=== PATIENT | female | born 1950 | race Caucasian/White ===

== ENCOUNTER 2020-01-07 10:26 | Outpatient (CLI) | payer OTHER, SELFPAY ==
--- NOTE | ~2020-01-07 | MM_ITS ---
EXAMINATION: MM screening brown BI w juan c HISTORY: Screening mammogram TECHNIQUE: Craniocaudal and mediolateral oblique 3-D tomosynthesis images were obtained and synthetic 2-D images were generated. CAD analysis was submitted and interpreted. COMPARISON: No prior mammogram is available for comparison at this institution. BREAST PARENCHYMAL COMPOSITION: There are scattered areas of fibroglandular density. FINDINGS: There is focal asymmetry laterally in the left breast on CC view. There is no evidence of s uspicious mass, calcification, or architectural distortion to suggest malignancy in the right breast. IMPRESSION: 1. Focal left breast asymmetry laterally on CC view. 2. Additional mammographic views and possible breast ultrasound are recommended. BI-RADS Category 0: Incomplete: Needs additional imaging evaluation. Reviewed, dictated and finalized at location A. IMPRESSION: 1. Focal left breast asymmetry laterally on CC view. 2. Additional mammographic views and possible breast ultrasound are recommended . BI-RADS Category 0: Incomplete: Needs additional imaging evaluation.
== END 2020-01-07 10:27 | disposition home or self-care (01) ==
LOC: ANHIMG 10:30
PROVIDERS: PCP Internal Medicine; Visit Provider Internal Medicine
DX: Z12.31 Encounter for screening mammogram for malignant neoplasm of breast (principal); R92.8 Other abnormal and inconclusive findings on diagnostic imaging of breast
CPT/HCPCS: 77063; 77067

== ENCOUNTER 2020-02-18 11:46 | Outpatient (CLI) | payer OTHER, SELFPAY ==
--- NOTE | ~2020-02-18 | MMUS_ITS ---
EXAMINATION: MM diagnostic mammo unilat LT, US breast LT limited HISTORY: Follow-up left breast asymmetry TECHNIQUE: Additional 3-D tomosynthesis images of the left breast were performed and synthetic 2-D im ages were generated. CAD analysis was submitted and interpreted. High resolution left breast ultrasou nd was performed. COMPARISON: Comparison to multiple prior studies sequentially, with oldest reviewed study dated 12/04. BREAST PARENCHYMAL COMPOSITION: Breast composed of scattered areas of fibroglandular density. FINDINGS: MAMMOGRAPHIC FINDINGS: There is a focal irregular shaped mass in the upper outer quadrant of the left breast measuring appro ximately 6 mm, middle third. There are no suspicious calcifications or architectural distortion. ULTRASOUND: Left breast ultrasound: At 2:00, 5 cm from the nipple in the left breast there is a 6 mm irregular shaped hypoechoic mass wit h antiparallel configuration, posterior shadowing and no internal vascularity. This corresponds to th e finding on mammography. IMPRESSION: 1. Solid irregular hypoechoic left breast mass at 2:00, 5 cm from the nipple. 2. Ultrasound-guided left breast biopsy recommended. BI-RADS category 4, suspicious findings. Reviewed, dictated and finalized at location A. IMPRESSION: 1. Solid irregular hypoechoic left breast mass at 2:00, 5 cm from the nipple. 2. Ultrasound-guided left breast biopsy recommended. BI-RADS category 4, suspicious findings.
== END 2020-02-18 11:47 | disposition home or self-care (01) ==
LOC: ANHIMG 11:48
PROVIDERS: PCP Internal Medicine; Visit Provider Internal Medicine
DX: N64.89 Other specified disorders of breast (principal); R92.8 Other abnormal and inconclusive findings on diagnostic imaging of breast
CPT/HCPCS: 76642; 77065

== ENCOUNTER 2023-12-02 13:11 | Outpatient (CLI) | payer MEDICARE, SELFPAY ==
--- NOTE | ~2023-12-02 | XR_ITS ---
XR hip BI wo pelvis Ordering provider: Natasha Ireland, History: . right hip pain, no known injury . Comparison: None. FINDINGS: BONES: No acute fracture or dislocation. HIP JOINT SPACES: Bilateral hip osteoarthritic changes. SACROILIAC JOINT SPACES/LUMBAR SPINE: The sacroiliac joint spaces are normal. Mild degenerative cordon es of the visualized lower lumbar spine. Attempt of lumbarization of S1 is noted. PUBIC SYMPHYSIS: Normal. SOFT TISSUES: Normal. IMPRESSION: No acute osseous abnormality of the bilateral hips and pelvis. Bilateral hip osteoarthritic changes. Reviewed, dictated and finalized at location A.
== END 2023-12-02 13:12 | disposition home or self-care (01) ==
LOC: ANHIMG 13:14
PROVIDERS: PCP Internal Medicine; Visit Provider Internal Medicine
DX: M16.0 Bilateral primary osteoarthritis of hip (principal); M25.551 Pain in right hip
CPT/HCPCS: 73521

== ENCOUNTER 2025-02-18 01:43 | Day surgery (SDC) | payer MEDICARE, SELFPAY ==
[2025-02-05 08:45] VITALS: BMI 26.6
--- OUTSIDE RECORDS SUMMARY | 2025-02-18 01:45 | XMS_ITS | Encounter Summary ---
Author Organization [facility] Healthcare Address [address] [place] [address] Care Team Providers Care Patient Safety Tech Name Role Phone Natasha Ireland MD Primary Care Provider + Natasha Ireland MD Primary Care Provider + Natasha Ireland MD Unavailable [phone] Tacho Balderas MD PhD Unavailable [phone] [facility] Unavailable [phone] Ewa Diallo MD Unavailable [phone] Jaymie Nicholson NP Unavailable [phone] Ewa Diallo MD Unavailable [phone] Encounter Details Date Type Department Care Team (Late st Contact Info) Description 11/20/2019 Documentation [facility] Case Management [id number] [place] [address] Lyly Nice RN Social History Tobacco Use Types Packs/Day Years Used Date Smoking Tobacco: Never Smokeless Tobacco: Never Alcohol Use Standard Drinks/Week Comments Yes 0 (1 standard drink = 0.6 oz pur e alcohol) occasionally PHQ-2 Answer Date Recorded PHQ-2 Total Score (If total score is 3 or more points, staff should administer the PHQ-9) 0 11/14/2019 Comments No Sex and Gender Information Value Date Recorded Sex Assigned at Not on file Legal Sex Female 2:42 PM FILM [employer] Gender Identity Female 11/02/2021 12:42 PM CDT Sexual Orientation Lesbian 11/02/2021 12 :42 PM CDT documented as of this encounter Plan of Treatment Not on file documented as of this encounter Visit Diagnoses Not on filedocumented in this encounter Care Teams Patient Safety Tech Relationship Specialty Start Date End Date Natasha Ireland MD PCP - General Internal Medicine 02/22/18 03/25/20 Natasha Ireland MD PCP - General 03/26/20 Natasha Ireland MD Internal Medicine 03/26/20 01/04/21 Tacho Balderas MD PhD Medical Oncology 03/25/20 11/08/21 Urban Carson MD Surgeon Surgery 03/25/20 Ewa Diallo MD Radiation Oncologist Radiation Oncology 01/04/21 4 Jaymie Nicholson NP Nurse Practitioner Medical Oncology 11/09/21 Ewa Diallo MD [facility] [address] Radiation Oncologist Radiation Oncology 12/22/23 documented as of this encounter
--- OUTSIDE RECORDS SUMMARY | 2025-02-18 01:45 | XMS_ITS | Encounter Summary ---
Author Organization [facility] Health Address [address] [place] [address] Care Team Providers Care Client Finance Analyst Name Role Phone Unavailable Primary Care Provider Unavailabl e Prior Encounters Date Type Department Care Team Description 06/24/2024 2:30 PM PST Office Visit [facility] [address] [place] [address] Mary Beth Durham, [facility] Encounter for dental examination and cleaning without abnormal findings (Primary Dx) 06/24/2024 Travel 06/24/2024 1:15 PM PST Office Visit [facility] [address] [place] [address] Tricia Johnson DDS Encounter for dental examination and cleaning without abnormal findings (Primary Dx) 08/10/2020 Travel 08/10/2020 2:30 PM PST Office Visit [facility] [address], [address] [address] Luz Maria Burns DDS 07/30/2020 Travel 07/30/2020 1:30 PM PST Office Visit [facility] [address], [address] [address] Luz Maria Burns DDS 07/14/2020 Travel 07/14/2020 1:30 PM PST Office Visit [facility] [address], [address] [address] Luz Maria Burns, DDS 07/02/2020 1:00 PM PST Office Visit [facility] [address], [address] [place] [address] BryanchristalCaesar rogers, DDS 06/10/2020 Travel 06/10/2020 10:00 AM PST Office Visit [facility] [address], [address] [place] [address] Tricia Sanchez, [facility] 05/13/2020 Travel 05/13/2020 1:15 PM PST Office Visit [facility] [address] [place] [address] Katy Luz Maria, S 07/08/2019 Converted 13x Documents [facility] [address] [place] [address] <No scans attached> 07/08/2019 Converted CPS Chart Documents [facility] [address] [place] [address] <No scans attached> Last Filed Vital Signs Vital Sign Reading Time Taken Comments Blood Pressure 116/72 06/24/2024 1:24 PM PST Pulse 96 06/24/2024 1:24 PM PST Temperature 36.2 C (97.1 F) 05/13/2020 1:46 PM PST Respiratory Rate - - Oxygen Saturation - - Inhaled Oxygen Concentration - - Weight - - Height - - Body Mass Index - - Plan of Treatment Not on file Procedures Procedure Name Priority Date/Time Associated Diagnosis Comments ORAL FITNESS AMMP-8 MANUALLY RESULTED Routine 06/24/2024 5:14 PM PST 19 SCALING AND DEBRIDEMENT OF A SINGLE IMPLANT IN THE PRESENCE OF MUCOSITIS Routine 06/24/2024 2:30 PM PST Encounter for dental examination and cleaning without abnormal findings LL ANTIBACT IRR/QUAD Routine 06/24/2024 2:30 PM PST Encounter for dental examination and cleaning without abnormal findings PROPHYLAXIS - ADULT Routine 06/24/2024 2 :30 PM PST Encounter for dental examination and cleaning without abnormal findings ORAL HYGIENE INSTRUCTIONS Routine 06/24/2024 2:30 PM PST Encounter for dental examination and cleaning without abnormal findings TOPICAL APPLICATION OF FLUORIDE VARNISH Routine 06/24/2024 2:30 PM PST Encounter for dental examination and cleaning without abnormal findings 8 MIFL RESIN-BASED COMPOSITE - FOUR OR MORE SURFACES (ANTERIOR) Routine 06/24/2024 1:15 PM PST ORALFITNESSCHECK INITIAL SCREEN Routine 06/24/2024 1:15 PM PST INTRAORAL PHOTO Routine 06/24/2024 1:15 PM PST INTRAORAL PHOTO Routine 06/24/2024 1:15 PM PST INTRAORAL PHOTO Routine 06/24/2024 1:15 PM PST INTRAORAL PHOTO Routine 06/24/2024 1:15 PM PST ADDITIONAL X-RAY Routine 06/24/2024 1:15 PM PST ADDITIONAL X-RAY Routine 06/24/2024 1:15 PM PST ADDITIONAL X-RAY Routine 06/24/2024 1:15 PM PST ADDITIONAL X-RAY Routine 06/24/2024 1:15 PM PST ADDITIONAL X-RAY Routine 06/24/2024 1:15 PM PST SINGLE X-RAY Routine 06/24/2024 1:15 PM PST BITEWINGS - FOUR RADIOGRAPHIC IMAGES Routine 06/24/2024 1:15 PM [address] CAPTURE AND INTERPRETATION WITH FIELD OF VIEW OF BOTH JAWS; WITH OR WITHOUT CRANIUM Routine 06/24/2024 1:15 PM PST COMPREHENSIVE ORAL EVALUATION - NEW OR ESTABLISHED PATIENT Routine 06/24/2024 1:15 PM PST Encounter for dental examination and cleaning without abnormal findings 5 B(V) COMPOSITE FILLING Routine 12:00 AM PST 6 MIDL COMPOSITE FILLING Routine 12:00 AM PST 7 MIDF COMPOSITE FILLING Routine 12:00 AM PST 9 MIL COMPOSITE FILLING Routine 06/24/19 12:00 AM PST 8 MIDL COMPOSITE FILLING Routine 12:00 AM PST 21 CEREC CROWN Routine 06/24/2024 12:00 AM PST 21 ROOT CANAL Routine 06/24/2024 12:00 AM PST 13 CEREC CROWN Routine 06/24/2024 12:00 AM PST 14 CEREC CROWN Routine 06/24/2024 12:00 AM PST 12 CEREC CROWN Routine 06/24/2024 12:00 AM PST 29 PFM CROWN Routine 06/24/2024 12:00 AM PST 31 PFM CROWN Routine 06/24/2024 12:00 AM PST 13 ROOT CANAL Routine 06/24/2024 12:00 AM PST 14 ROOT CANAL Routine 06/24/2024 12:00 AM PST 29 ROOT CANAL Routine 06/24/2024 12:00 AM PST 31 ROOT CANAL Routine 06/24/2024 12:00 AM PST 30 CEREC CROWN Routine 06/24/2024 12:00 AM PST 30 DENTAL IMPLANT Routine 06/24/2024 12: 00 AM PST 4 CEREC CROWN Routine 06/24/2024 12:00 AM PST 11 CEREC CROWN Routine 06/24/2024 12:00 AM PST 4 DENTAL IMPLANT Routine 06/24/2024 12:0 0 AM PST 12 DENTAL IMPLANT Routine 06/24/2024 12: 00 AM PST 15 PFM CROWN Routine 06/24/2024 12:00 AM PST 20 CEMENT CROWN Routine 08/10/2020 2:30 PM PST 20 IMPLANT ZIRCONIA CROWN Routine 07/14/2020 1:30 PM PST 20 CUSTOM FABRICATED ABUTMENT INCLUDES PLACEMENT Routine 07/14/2020 1:30 PM PST 20 SECOND STAGE IMPLANT SURGERY Routine 07/02/2020 1:00 PM PST PERIO MAINTENANCE Routine 06/10/2020 10: 00 AM PST INTRAORAL PHOTO Routine 05/13/2020 1:15 PM PST INTRAORAL PHOTO Routine 05/13/2020 1:15 PM PST INTRAORAL PHOTO Routine 05/13/2020 1:15 PM PST INTRAORAL PHOTO Routine 05/13/2020 1:15 PM PST BITEWINGS - FOUR RADIOGRAPHIC IMAGES Routine 05/13/2020 1:15 PM PST ADDITIONAL X-RAY Routine 05/13/2020 1:15 PM PST ADDITIONAL X-RAY Routine 05/13/2020 1:15 PM PST ADDITIONAL X-RAY Routine 05/13/2020 1:15 PM PST ADDITIONAL X-RAY Routine 05/13/2020 1:15 PM PST ADDITIONAL X-RAY Routine 05/13/2020 1:15 PM PST SINGLE X-RAY Routine 05/13/2020 1:15 PM PST PERIODIC ORAL EVALUATION - ESTABLISHED PATIENT Routine 05/13/2020 1:15 PM PST 19 RECEMENT CROWN Routine 07/23/2019 12: 00 AM PST 20 IMPLANT Routine 05/30/2019 12:00 AM PST MISSED APPOINTMENT Routine 05/23/2019 12 :00 AM PST TREATMENT OF COMPLICATIONS (POST-SURGICAL) - UNUSUAL CIRCUMSTANCES, BY REPORT Routine 07/12/2018 12:00 AM PST PLAN VISIT FEE Routine 07/12/2018 12:00 AM PST PANORAMIC RADIOGRAPHIC IMAGE Routine 06/26/2018 12:00 AM PST ADDITIONAL X-RAY Routine 06/26/2018 12:0 0 AM PST SINGLE X-RAY Routine 06/26/2018 12:00 AM PST INTRAORAL PHOTO Routine 06/26/2018 12:00 AM PST 19 IMPLANT CROWN UNIT Routine 06/25/2018 12:00 AM PST 19 IMPLANT Routine 06/25/2018 12:00 AM PST 20 GUIDED TISSUE REGENERATION, NATURAL TEETH - RESORBABLE BARRIER, PER SITE Routine 06/25/2018 12:00 AM PST 20 BONE REPLACEMENT GRAFT FOR RIDGE PRESERVATION - PER SITE Routine 06/25/2018 12:00 AM PST 20 REMOVAL OF RESIDUAL TOOTH ROOTS (CUTTING PROCEDURE) Routine 06/25/2018 12:00 AM PST DENTAL PLAN ENROLL 2 Routine 06/25/2018 12:00 AM PST 20 LIMITED ORAL EVALUATION - PROBLEM FOCUSED Routine 06/25/2018 12:00 AM PST Results * (ABNORMAL) Oral Fitness AMMP-8 manually resulted (06/24/2024 5:14 PM [facility]) Active matrix metalloproteina se-8 level 31(A) 0 - 10 ng/mL Saliva Salivary gland structure / Unknown 06/24/2024 5:14 PM [facility] Tricia Johnson DDS PDS [facility] al Result Visit Diagnoses Diagnosis Start Date Encounter for dental examination and cleaning without abnormal findings 06/24/2024 Encounter for dental examination and cleaning without abnormal findings 06/24/2024 Insurance [facility] PPO
--- OUTSIDE RECORDS SUMMARY | 2025-02-18 01:45 | XMS_ITS | Clinical Summary ---
Author Organization [facility] Address [address] [place] [address] Care Team Providers Care Laboratory Aide Name Role Phone Natasha Ireland MD Primary Care Provider + NimcoUrban MD Unavailable [phone] FerminjaJaymie blanc NP Unavailable [phone] Ewa Diallo MD Unavailable [phone] Allergies Active Allergy Reactions Criticality Noted Date Comments Codeine Stomach upset,Other (See comments) Low 09/01/2017 Other Reaction(s): GI Upset Nausea Nausea Hydrocodone Nausea only Low 04/08/2020 Other Reaction(s): Vomiting Oxycodone Nausea only Low 04/08/2020 Other Reaction(s): Vomiting Medications lisinopril-hydroCH LOROthiazide (PRINZIDE,ZESTORET IC) 10-12.5 mg per tabletIndications: hypertension 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 9 Active atorvastatin (LIPITOR) 20 mg tabletIndications: hyperlipidemia Take 1 tablet (20 mg total) by mouth nightly 9 Active calcium carbonate-vitamin D3 (Calcium 600 + D,3,) 1,500 mg (600 mg elemental)-200 unit capsule 2 Every Morning Oral 7 Active allopurinoL (ZYLOPRIM) 100 mg tablet Take 2 tablets (200 mg total) by mouth daily 4 Active letrozole (FEMARA) 2.5 mg tabletIndications: Early Breast Cancer HR Positive and Postmenopausal Take 1 tablet (2.5 mg total) by mouth daily 90 tablet 3 4 03/26/20 25 Active multivitamin (Multiple Vitamins) tablet Take 1 tablet by mouth 5 Active triamcinolone (KENALOG) 0.1 % cream apply by topical route 2 times every day a thin layer to the affected areas on arms and chest 5 Active Hospital, Clinic, or Other Facility Administered Medication Ordered Dose Route Frequency Start Date End Date Status lidocaine (XYLOCAINE) 10 mg/mL (1 %) injection 1 mLIndications:Adminis tration of Local Anesthesia 1 mL One-Time Injection 02/12/2025 5 Ended methylPREDNISolone acetate (DEPO-medrol) injection 40 mgIndications:Arthrit is of carpometacarpal (CMC) joint of right thumb 40 mg intra-artic One-Time Injection 02/12/2025 5 Ended Active Problems Problem Noted Date Diagnosed Date Disorder of bone 02/12/2025 Osteopenia of neck of left femur 04/03/2023 Overview (04/03/2023): Date Lumbar Spine T-score Left hip T-score Femoral neck T-score 04-22-2020 0.4 -0.1 -1.0 01/18/2023 0.4 0.2 -1.2 Personal history of radiation therapy 01/04/2021 detention (current) use of aromatase inhibitors 05/19/2020 Malignant neoplasm of upper- outer quadrant of left breast in female, estrogen receptor positive ([facility]/HCC) 03/26/2020 HTN (hypertension) 11/13/2019 Vitamin D deficiency 06/19/2019 Hyperlipidemia 04/25/2019 Abnormal glucose level 10/17/2018 Gout 10/16/2017 Pure hyperglyceridemia 10/25/2004 Resolved Problems Problem Noted Date Diagnosed Date Resolved Date Primary osteoarthritis of right knee 11/06/2019 11/09/2021 Overview (11/06/2019): Added automatically from request for surgery [id number] Aftercare following left kne e joint replacement surgery 06/01/2017 11/09/2021 Encounters Date Type Department Care Team Description 02/12/2025 11:00 AM CDT Office Visit [facility] Medicine Orthopaedic Surgery [address] 6[address] [place] [address] [place] [address] Jona Cool MD Arthritis of carpometacarpal (CMC) joint of right thumb (Primary Dx) 01/07/2025 2:00 PM CDT Office Visit [facility] Medical Office Building 2 Radiation Oncology [address] [place] [address] Angelica Yeager, [place] Malignant neoplasm of upper-outer quadrant of left breast in female, estrogen receptor positive (CMS/HCC) (HCC) (Primary Dx); Personal history of radiation therapy from Last 3 Months Immunizations Immunization Administration Dates Next Due Influenza, Quad, Adjuvantated, Intramuscular 11/2021,04/16/2021 Influenza, Quadrivalent, Hig h Dose, Preservative Free, Intrr 04/17/2020 Influenza, Quadrivalent, Rec ombinant, Egg Free, Preservative Free, Intramuscular 04/25/2019,04/17/2018 Influenza, Quadrivalent, Spl it, Preservative Free, Intramuscular 04/30/2016 Moderna SARS-CoV-2 Monovalent Vaccination (12+ Y RS) 08/26/2020,07/27/2020 Pneumococcal Conjugate PCV 13 10/16/2017 Pneumococcal Polysaccharide PPV23 10/18/2018 Tdap 09/17/2017 ZOSTER LIVE 06/22/2021 ZOSTER Recombinant 11/10/2021 Surgical History Surgery Date Site/Laterality Comments TOTAL KNEE ARTHROPLASTY 06/19/2016 - 06/18/2017 Left CARPAL TUNNEL RELEASE Bilateral TONSILLECTOMY CATARACT EXTRACTION, BILATERAL COLONOSCOPY 06/19/2015 - 06/18/2016 US GUIDED BIOPSY LYMPH NODE SUPERFICIAL LEFT 04/01/2020 N/A FLUORO GUIDED INJECTION HIP RIGHT 03/08/2024 Right BREAST SURGERY Lumpectomy 04/07 JOINT REPLACEMENT Left knee 2016; Righ t knee 2018 CATARACT EXTRACTION Both eyes 2019 KNEE ARTHROSCOPY W/ LATERAL RELEASE Left knee 2016; right knee 2019 Medical History Medical History Date Comments HTN (hypertension) Dyslipidemia Osteoarthritis Hypercholesteremia Cancer (HCC) 2019 breast Family History Medical History Relation Name Comments Alcohol abuse Brother 1 Yusuf Barrow Family history of alcoholism - (Added by TW Conv) Cancer Brother 1 Yusuf Barrow Lung cancer Brother 1 Yusuf Barrow smoker No Known Problems Brother 2 No Known Problems Brother 3 Alcohol abuse Father Skyler Barrow Family histor y of alcoholism - (Added by TW Conv) Heart disease Father Skyler Barrow Family histor y of cardiac disorder - (Added by TW Conv) No Known Problems Maternal Grandfather No Known Problems Maternal Grandmother COPD Mother Alicia Barrow Kidney disease Mother Alicia Barrow Family his tory of kidney disease - (Added by TW Conv) Heart disease Paternal Grandfather Breast cancer Paternal Grandmother No Known Problems Sister 1 No Known Problems Sister 2 Relation Name Status Comments Brother 1 Yusuf Barorw Brother 2 Alive Brother 3 Alive Father Skyler Barrow (Age 56y/o) [place] Maternal Grandfather Maternal Grandmother Mother Alicia Barrow Paternal Grandfather Paternal Grandmother Sister 1 Alive Sister 2 Alive Social History Tobacco Use Types Packs/Day Years Used Date Smoking Tobacco: Never Smokeless Tobacco: Never Tobacco Cessation:Counseling Given: Not Answered Alcohol Use Standard Drinks/Week Comments Yes 0 (1 standard drink = 0.6 oz pur e alcohol) occasionally AUDIT-C Answer Date Recorded Q1: How often do you have a drink containing alc ohol? 2-4 times a month 01/03/2024 Q2: How many drinks containi ng alcohol do you have on a typical day when you are drinking? 1 or 2 01/03/2024 Q3: How often do you have si x or more drinks on one occasion? 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6 cm (5' 4) 03/06/2024 10:37 AM CDT Body Mass Index 26.61 03/06/2024 10:37 AM CDT Plan of Treatment Health Maintenance Due Date Last Done Comments Hepatitis C Screening 1950 Hepatitis B Screening 1966 Well Visit 65+ 2013 Depression Screening 11/05/2020 11/06/2019, 11/06/19 Fall Risk Assessment 11/13/2020 11/14/2019 Zoster Vaccine (2 of 2) 01/05/2022 11/10/2021, 06/22 Covid-19 Vaccine (8 - Modern a risk season) 2025 03/09/2024, 11/09/2022, 06/15/2022, Additional history exists Influenza Vaccine (#1) 2025 , 05/26/2023, 03/24/2022, Additional history exists Osteoporosis Screening-Bone Density Scan 02/07/2027 02/07/2025, 01/18/2023, 04/22/2020 DTaP/Tdap/Td Vaccine (3 - Td or Tdap) 09/18/2027 09/17/2017, 2008, 04/02/1999 Pneumococcal vaccine 65+ Completed 024, 10/18/2018, 10/16/2017 Breast Cancer Screening-Mammogram Discontinued 02/07/2025, 02/07/2025, 01/22/2024, Additional history exists Medical Devices Implanted Type Area Air Carrier Maintenance Inspector Device Identifier Shelf Expiration Date Model / Serial / Lot [employer] [id number] Attune Cementless Rotate Platform Knee 5 Baseplate Tibial - [id number] Implanted:Qty: 1 on 11/14/2019 by Jona Marques MD at [facility] Right: Knee [employer] [id number] 12/16/2028 [id number] / / [id number] [employer] [id number] Attune 5mm Cruciate Retaining Rotate Platform Knee 4 Insert - [id number] Implanted:Qty: 1 on 11/14/2019 by Jona Marques MD at [facility] Right: Knee [employer] [id number] 09/16/2024 [id number] / / [id number] [employer] [id number] Attune Cruciate Retain Cementless Knee Right 4 Narrow Component - [id number] Implanted:Qty: 1 on 11/14/2019 by Jona Marques MD at [facility] Right: Knee [employer] [id number] 03/18/2029 [id number] / / [id number] Procedures Procedure Name Priority Date/Time Associated Diagnosis Comments [place] ARTHROCENTESIS ASPIR&/INJ SMALL JT/BURSA W/O US Routine 02/12/2025 11:00 AM CDT Arthritis of carpometacarpal (CMC) joint of right thumb SCREENING MAMMOGRAM BILATERAL W NELDA Schedule Routine, Read Routine (OP Routine) 12/04/2018 11:27 AM CDT Encounter for screening mammogram for malignant neoplasm of breast from Last 3 Months or Most Recently Relevant to Health Maintenance Results * [place] ARTHROCENTESIS ASPIR&/INJ SMALL JT/BURSA W/O US (02/12/2025 11:00 AM CDT) Narrative Jona Cool MD - 02/12/2025 11:00 AM CDT Jona Cool MD 02/12/2025 6:11 PM Small Joint Injection: R thumb CMC Performed by: Jona oCol MD Authorized by: Jona Cool MD Supporting Documentation: Indications: Pain Procedure Details: Location: Thumb Site: R thumb CMC Ultrasound guidance: No Medications: 40 mg methylPREDNISolone acetate 40 mg/mL; 1 mL lidocaine 10 mg/mL (1 %) Today we recommended a steroid injection. Risks of the injection were explained to include infection, flare reaction, skin depigmentation, dimpling, temporary elevation in blood sugars in patients with diabetes, and possible tendon rupture damage to cartilage with repeated injections. Injection performed with an alcohol and Betadine preparation. us Jona Cool MD IN CLINIC/BEDSIDE ORDERAB LES Final Result from Last 3 Months Insurance [facility] MEDICARE ADVANTAGE Advance Directives For more information, please contact: [phone] * Full Code (Latest Code Status on File) Date Activated Date Inactivated Comments 11/14/2019 10:35 AM 11/14/2019 11:32 PM Care Teams Laboratory Aide Relationship Specialty Start Date End Date Natasha Ireland MD PCP - General 03/26/20 Urban Carson MD Surgeon Surgery 03/25/20 Jaymie Nicholson NP Nurse Practitioner Medical Oncology 11/09/21 Ewa Diallo MD [address] [place] [id number] Radiation Oncologist Radiation Oncology 12/22/23
--- OUTSIDE RECORDS SUMMARY | 2025-02-18 01:45 | XMS_ITS | Encounter Summary ---
Author Organization [facility] [place] [facility] Address [address] [place] [address] Phone Care Team Providers Care Head Cook Name Role Phone Natasha Ireland MD Primary Care Provider + Natasha Ireland MD Primary Care Provider + Natasha Ireland MD Unavailable [phone] Tacho Balderas MD PhD Unavailable [phone] NimcoUrban MD Unavailable [phone] Ewa Diallo MD Unavailable [phone] Jaymie Nicholson NP Unavailable [phone] Ewa Diallo MD Unavailable [phone] Encounter Details Date Type Department Care Team (Late st Contact Info) Description 03/25/2020 Telephone [facility] Oncology [address] 7[address] [place] [address] [place] [address] Carli Mohamud Social History Tobacco Use Types Packs/Day Years [...] on file 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
--- OUTSIDE RECORDS SUMMARY | 2025-02-18 01:45 | XMS_ITS | Patient Health Record ---
Author Organization [facility] Address [address] [place] [address] Support Name Relationship Address Phone Barrow Josefa Guarantor Unknown Unavailable Reason For Referral No Information Medications Medication SIG (Take, Route, Frequency, Duration) Notes Start Date End Date Status Lisinopril-hydroCHLOR Othiazide 10-12.5 MG TAKE ONE TABLET BY MOUTH EVERY MORNING FOR HYPERTENSION. Oral 07/11/2013 Active ATORVASTATIN 20 MG TAB CARLOS TAKE ONE TABLET BY MOUTH AT BEDTIME *Reorder from Digital Guardian for eRx and Interaction Alerts* 08/28/2013 Active Calcium 600 + D 600-5 MG-MCG 2 Every Morning Oral 09/20/2006 Active Allopurinol 300 MG TAKE ONE TABLET BY MOUTH ONE TIME DAILY Oral 07/11/2013 Active Immunizations Vaccine Route Administration Date Status Comme nts Infuenza, trivalent, recombinant, preservative free Unknown 05/17/2012 Administered [facility] Infuenza, trivalent, recombinant, preservative free Unknown 04/30/2013 Administered [facility] Td (adult) Unknown 04/02/1999 Administered migrated Leg Patid= [id number] Date=04/02/1999 Vac= TD Tdap Unknown 2008 Administered migrated Leg Patid= [id number] Date=2008 Vac= Tdap Problems Problem Type SNOMED Code ICD Code Onset Dates Problem Status W/U Status Risk Notes Problem Vitamin D deficiency (77713921) Vitamin D deficiency, unspecified (E55.9) 2009 Active confirmed 08/23/2012 - 25 add 1000 units/day Problem Pure hyperglyceridemia (562273198) Pure hyperglyceridemi a (E78.1) 2004 Active confirmed Problem Gout (25540687) Gout, unspecified (M10.9) Active confirmed on allopurinol 300mg Last attack 12/2011 Uric acid 5.0, 4.4 Problem Disorder of bone (47567166) Other specified disorders of bone density and structure, unspecified site (M85.80) Active confirmed 08/24/2012 - Mild Problem Menopause (788864925) Menopausal and female climacteric states (N95.1) 2004 Active confirmed Problem Electrocardiogram abnormal (026549274) Abnormal electrocardiogra m [ECG] [EKG] (R94.31) 2006 Active confirmed Old IMI Problem History of polyp of colon (situation) (568306248) Personal history of colonic polyps (Z86.010) 2004 Active confirmed Hyperplastic polyp, Brent Problem Essential hypertension (69711923) Essential (primary) hypertension (I10) 2004 Active confirmed Problem Pure hypercholesterolemi a (030954660) Pure hypercholesterol emia, unspecified (E78.00) 2004 Active confirmed 08/23/2012 - 187/50/159 start 20 08/23/2012 - Plan Of Treatment No Information Insurance Providers Payer Name Payer Address Payer Phone Subscriber Number Group Number Insured Name Patient Relationship to Insured Coverage Start Date Coverage End Date [place] [employer] Program [address] [place] [address] [id number] Josefa Barrow Self - patient is the insured 3 [employer] - Open Access [address] [place], [place] [id number] Josefa Barrow Self - patient is the insured 2 Xxx [address] [place] [address] [id number] BP Josefa Barrow Self - patient is the insured 2 Medical (General) History Surgical History Surgery Date(Month/Year) CTS: right, Date of Procedure: 08-20-03 Carpal tunnel release: left, Date of Pro cedure: 2003; 2012-08-20
--- OUTSIDE RECORDS SUMMARY | 2025-02-18 01:45 | XMS_ITS | Clinical Summary ---
Author Organization [facility] Address Formerly [facility], later [facility] [place] [address] Care Team Providers Care Director Digital Catalogue Name Role Phone Natasha Ireland MD Primary Care Provider [phone] Tacho Balderas MD Unavailable [phone] Allergies Active Allergy Reactions Criticality Noted Date Comments Codeine GI Upset Low 09/01/2017 Nausea Hydrocodone Vomiting 04/08/2020 Oxycodone Vomiting 04/08/2020 Medications allopurinol 300 MG tablet Take 300 mg by mouth daily. Active lisinopril-hydr ochlorothiazide 10-12.5 MG tablet Take 1 tablet by mouth daily. Active atorvastatin 20 MG tablet Take 20 mg by mouth nightly at bedtime. Active meloxicam 15 MG tablet Take 15 mg by mouth daily. 0 Active diclofenac sodium 1 % gel Apply 2 g topically 3 (three) times daily. 0 Active Active Problems No known active problems Encounters Date Type Department Care Team Description 02/07/2025 11:44 AM CDT - 02/07/2025 11:59 PM CDT Hospital Encounter [facility] [address] [address] Fco Carson MD Discharge Disposition: Home or Self Care (Routine Discharge) 02/07/2025 Travel from Last 3 Months Immunizations Immunization Administration Dates Next Due MODERNA COVID-19 (12+) MRNA, LNP-S, PF, 100 MCG/ 0.5 ML DOSE 01/19/2022,03/02/2021,09/01/2020,2020 Family History Medical History Relation Comments Heart Disease Father Breast Cancer Paternal Grandmother Relation Status Comments Father Paternal Grandmother Social History Tobacco Use Types Packs/Day Years Used Date Smoking Tobacco: Never Smokeless Tobacco: Never Alcohol Use Standard Drinks/Week Comments Yes 0 (1 standard drink = 0.6 oz pur e alcohol) once a month Comments No Sex and Gender Information Value Date Recorded Sex Assigned at Not on file Legal Sex Female 8:43 AM CDT Gender Identity Female 01/21/2022 6:11 AM CDT Sexual Orientation Lesbian 01/21/2022 6: 11 AM CDT Last Filed Vital Signs Vital Sign Reading Time Taken Comments Blood Pressure 114/73 04/08/2020 12:45 PM CDT Pulse 105 04/08/2020 12:45 PM CDT Temperature 36.5 C (97.7 F) 04/08/2020 12:45 PM CDT Respiratory Rate 18 04/08/2020 12:4 5 PM CDT Oxygen Saturation 95% 04/08/2020 12: 45 PM CDT Inhaled Oxygen Concentration - - Weight 76.5 kg (168 lb 10.4 oz) 04/08/2020 6:42 AM CDT Height 162.6 cm (5' 4) 04/08/2020 6:42 AM CDT Body Mass Index 28.95 04/08/2020 6:42 AM CDT Plan of Treatment Health Maintenance Due Date Last Done Comments Hepatitis C 1968 Annual Medicare Wellness Visit 2013 Zoster Vaccines (3 of 3) 01/05/2022 11/10/2021, 09/2021 RSV Immunization or 60+ Years (1 - 1-dose 75+ series) 08/20/2023 COVID-19 Vaccine ( season) 2024 01/19/2022, 03/02/2021, 09/01/2020, Additional history exists DTaP, Tdap and Td Vaccines (4 - Td or Tdap) 09/29/2027 09/28/2017, 09/17/2017, 2008, Additional history exists Pneumococcal Vaccine: 50+ Years Completed 10/18/2018, 10/16/2017 Dexa Scan (General) Completed 02/07/2025, 01/18/2023, 04/22/2020 Meningococcal B Vaccine Aged Out No l onger eligible based on patient's age to complete this topic Meningococcal Vaccine Aged Out No en amelia eligible based on patient's age to complete this topic RSV Immunizations Under 20 Months Aged Out No longer eligible based on patient's age to complete this topic Medical Devices Implanted Type Area Back Up Machine Operator Device Identifier Shelf Expiration Date Model / Serial / Lot Iol [employer]ision Zcboo - [id number] Implanted:Qty: 1 on 12/10/2018 by Luis Eduardo Chau MD at [facility] Lens Right: Eye [employer] 05/31/2021 [id number] / [id number] / Iol [employer]ision Zcboo - [id number] Implanted:Qty: 1 on 01/07/2019 by Luis Eduardo Chau MD at [facility] Lens Left: Eye [employer] 02/16/2022 [id number] / / Procedures Procedure Name Priority Date/Time Associated Diagnosis Comments BONE DENSITY/DEXA Routine 02/07/2025 12: 19 PM CDT Malignant neoplasm of upper-outer quadrant of left breast in female, estrogen receptor positive ([facility]/HCC [facility]/HCC) 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 WHO Classification: Osteopenia. 2. Significant interval decrease in bone mineral density RECOMMENDATIONS: All patients should ensure an adequate intake of dietary calcium and vitamin D. The NOF recommend adults under the age of 50 need 1000 mg of calcium and 400-800 IU of vitamin D daily. Effective therapy for the prevention and treatment of osteoporosis include bisphosphonates. FOLLOW-UP: People with diagnosed cases of osteoporosis or at high risk for fracture should have regular bone mineral density test. For patients eligible for Medicare, routine testing is allowed once every 2 years. Testing frequency can be increased to one year for patients who have rapidly progressing disease, those who are receiving or discontinuing medical therapy to restore bone mass, or have additional risk factors. Ordered By: JAYMIE BETTS Interpreted By: Jose Dasilva, 02/07/2025 12:28 PM Narrative 02/07/2025 12:[address] 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 FINDINGS: The BMD measured at the AP spine L1-L4 is 1.088 g/cm? with a T-score of 0.4 (previously 1.088 g/cm? with a T-score of 0.4). The BMD measured at the left femoral neck is 0.686 g/cm? with a T-score of -1.5 (previously 0.721 g/cm? with a T-score of -1.2). The BMD measured at the left hip is 0.908 g/cm? with a T-score of -0.3 (previously 0.964 g/cm? with a T-score of 0.2). The BMD measured at the right femoral neck is 0.687 g/cm? with a T-score of -1.5 (previously 0.725 g/cm? with a T-score of -1.1). The BMD measured at the right hip is 0.941 g/cm? with a T-score of 0.0 (previously 0.976 g/cm? with a T-score of 0.3). FRAX 10-year fracture risk: Major Osteoporotic Fracture: 12% Hip Fracture: 2.4% Procedure Note Jose Dasilva MD - 02/07/2025 [facility] [place] [address] EXAMINATION: BONE DENSITY/DEXA INDICATIONS: Malignant neoplasm of upper-outer quadrant of left femalebreast (CMS/HCC HHS/HCC), Estrogen receptor positive status (ER+), Half-Way (current) use of aromatase inhibitors, Other specified disorders ofbone density and structure, left thigh COMPARISON: 01/18/2023 TECHNIQUE: DEXA bone mineral density evaluation was performed in the APprojection over the lumbar spine and both hips utilizing standard imagingtechniques. FINDINGS: The BMD measured at the AP spine L1-L4 is 1.088 g/cm? with a T-score of0.4 (previously 1.088 g/cm? with a T-score of 0.4). The BMD measured at the left femoral neck is 0.686 g/cm? with a T-score of-1.5 (previously 0.721 g/cm? with a T-score of -1.2). The BMD measured at the left hip is 0.908 g/cm? with a T-score of - 0.3(previously 0.964 g/cm? with a T-score of 0.2). The BMD measured at the right femoral neck is 0.687 g/cm? with a T-scoreof -1.5 (previously 0.725 g/cm? with a T-score of -1.1). The BMD measured at the right hip is 0.941 g/cm? with a T-score of 0.0(previously 0.976 g/cm? with a T-score of 0.3). FRAX 10-year fracture risk: Major Osteoporotic Fracture: 12% Hip Fracture: 2.4% IMPRESSION: 1. WHO Classification: Osteopenia. 2. Significant interval decrease in bone mineral density RECOMMENDATIONS: All patients should ensure an adequate intake of dietary calcium andvitamin D. The NOF recommend adults under the age of 50 need 1000 mg ofcalcium and 400-800 IU of vitamin D daily. Effective therapy for theprevention and treatment of osteoporosis include bisphosphonates. FOLLOW-UP: People with diagnosed cases of osteoporosis or at high risk for fractureshould have regular bone mineral density test. For patients eligible forMedicare, routine testing is allowed once every 2 years. Testing frequencycan be increased to one year for patients who have rapidly progressingdisease, those who are receiving or discontinuing medical therapy torestore bone mass, or have additional risk factors. Ordered By: JAYMIE BETTS Interpreted By: Jose Dasilva, 02/07/2025 12:28 PM us Jaymie Betts WOOL BRUSHER DEXA Final Resul t * MG SCREENING W NELDA CHANDANA DIGI (02/07/2025 12:18 PM CDT) Anatomical Region Laterality Modality Breast Bilateral Mammography 02/07/2025 12:3 9 PM CDT Impressions 02/07/2025 12:41 PM CDT IMPRESSION: No significant interval change. No mammographic evidence of malignancy. RECOMMENDATION: Routine ScreeningBilateral OVERALL IMAGING ASSESSMENT: ACR BI-RADS 2 - BENIGN FINDING(S). Ordered By: FCO CARSON Interpreted By: Jose Dasilva, 02/07/2025 12:39 PM Narrative 02/07/2025 12:[address] [facility] [address] [place] [address] EXAMINATION: MG SCREENING W NELDA CHANDANA DIGI INDICATIONS: Screening TECHNIQUE: Digital full field CC and MLO screening mammography bilaterally to include 3-D Tomosynthesis technique. This study was read with the assistance of a computer-aided detection system. HISTORY: No reported breast complaint. Prior excisional breast biopsies. Family history of breast cancer. No documented personal or first degree family history of breast cancer. COMPARISON: Multiple prior examinations available for comparison dating back to 10/21/2016, the most recent of 01/22/2024, 02/05/2023, and 01/14/2022. TISSUE DENSITY: There are scattered areas of fibroglandular density. FINDINGS: Stable subtle post biopsy architectural distortion at the outer upper middle to posterior depth left breast. Few scattered typically benign round calcifications. No suspicious microcalcification or mass. No developing asymmetry or architectural distortion. No axillary adenopathy. Fco Carson MD MAMMO Final Result from Last 3 Months Insurance [facility] Care Teams Director Digital Catalogue Relationship Specialty Start Date End Date Natasha Ireland MD PCP - General INTERNAL MEDICINE 12/03/18 Tacho Balderas MD [address] [place] [id number] ONCOLOGY 04/02/20
--- OUTSIDE RECORDS SUMMARY | 2025-02-18 01:45 | XMS_ITS | Encounter Summary ---
Author Organization [facility] Address [address] [place] [address] Care Team Providers Care Community Relations Manager Name Role Phone Natasha Ireland MD Primary Care Provider Tacho Balderas MD Unavailable [phone] Encounter Details Date Type Department Care Team (Late st Contact Info) Description 04/02/2020 Prep for Procedure [facility] Testing [address] [place], [place] [id number] Urban Carson MD [address] [facility] [address] [place] [id number] Social History Tobacco Use Types Packs/Day Years [...] Orientation Lesbian 01/21/2022 6: 11 AM CDT COVID-19 Exposure Response Date Recorded In the last month, have you been in contact with someone who was confirmed or suspected to have Coronavirus / COVID-19? No / Unsure 04/04/2020 9:17 AM CDT documented as of this encounter Plan of Treatment Not on file documented as of this encounter Results * PRE-SURGICAL/PRE-PROCEDURE CORONAVIRUS (COVID 19) (04/05/2020 9:53 AM CDT) CORONAVIRUS SARS COV 2 PCR (RESP) NOT DETECTED NOT DETECTED 04/06/2020 4:36 PM CDT [facility] Comment: A Not Detected (negative) test result for this test means that SARS- CoV-2 RNA was not present in the specimen above the limit of detection. A negative result does not rule out the possibility of COVID-19 and should not be used as the sole basis for treatment or patient management decisions. If COVID-19 is still suspected, based on exposure history together with other clinical findings, re-testing should be considered in consultation with public health authorities. Laboratory test results should always be considered in the context of clinical observations and epidemiological data in making a final diagnosis and patient management decisions. Please review the Fact Sheets and FDA authorized labeling available for health care providers and patients using the following websites: [email or web address]/fact- sheet.html [email or web address]/home/[email or web address]/Patients/ [facility]/fact-sheet.html This test has been authorized by the FDA under an Emergency Use Authorization (EUA) for use by authorized laboratories. Due to the current public health emergency, [facility] is receiving a high volume of samples from a wide variety of swabs and media for COVID-19 testing. In order to serve patients during this public health crisis, samples from appropriate clinical sources are being tested. Negative test results derived from specimens received in non-commercially manufactured viral collection and transport media, or in media and sample collection kits not yet authorized by FDA for COVID-19 testing should be cautiously evaluated and the patient potentially subjected to extra precautions such as additional clinical monitoring, including collection of an additional specimen. Methodology: Nucleic Acid Amplification Test (NAAT) includes RT-PCR or TMA Additional information about COVID-19 can be found at the [facility] website: [email or web address]. Test performed at [facility] [place] [address] [place] [address] Director: RANDY CALVILLO DO,MPH FIRST TEST NO 04/05/2020 1:44 PM CDT [facility] EMPLOYED IN HEALTHCARE NO 04/05/2020 1:44 PM CDT [facility] SYMPTOMATIC DEFINED BY CDC NO 04/05/2020 1:44 PM CDT [facility] DATE OF SYMPTOM ONSET UNKNOWN 04/05/2020 1:46 PM CDT [facility] HOSPITALIZATION STATUS NO 04/05/2020 1:44 PM CDT [facility] PATIENT IN ICU NO 04/05/2020 1:44 PM CDT [facility] RESIDENT OF [facility] NO 04/05/2020 1:44 PM CDT [facility] UNKNOWN 04/05/2020 1:46 PM CDT [facility] PATIENT'S RACE WHITE OR 04/05/2020 1:44 PM CDT [facility] ETHNICITY NONHISPANIC 04/05/2020 1:44 PM CDT [facility] SOURCE (QST) NASOPHARYNGEAL SWAB 04/05/2020 1:44 PM CDT [facility] NASOPHARYNGEAL SWAB / Unknown 04/05/2020 9:53 AM CDT us Urban Carson MD MICROBIOLOGY - GENERAL ORDERAB LES Final Result [facility] [address] [place] [address], [facility] [address] [place] [address], documented in this encounter Visit Diagnoses Diagnosis Preop examination- Primary Preoperative examination, unspecified documented in this encounter Additional Health Concerns Infection Onset Date Last Indicated Resolved Time COVID-19 Rule Out 04/05/2020 04/05/2020 04/06/2020 4:36 PM CDT documented as of this encounter Care Teams Community Relations Manager Relationship Specialty Start Date End Date Natasha Ireland MD PCP - General INTERNAL MEDICINE 12/03/18 Tacho Balderas MD [address] [place] [id number] ONCOLOGY 04/02/20 documented as of this encounter
--- OUTSIDE RECORDS SUMMARY | 2025-02-18 01:45 | XMS_ITS ---
Author Organization [facility] Address [address] [place] [address] Care Team Providers Care Fuels Engineer Name Role Phone Natasha Ireland MD Primary Care Provider + Urban Carson MD Unavailable [phone] Jaymie Nicholson NP Unavailable [phone] Ewa Diallo MD Unavailable [phone] Active Problems Problem Noted Date Diagnosed Date Disorder of bone 02/12/2025 Osteopenia of neck of left femur 04/03/2023 Overview (04/03/2023): Date Lumbar Spine T-score Left hip T-score Femoral neck T-score 04-22-2020 0.4 -0.1 -1.0 01/18/2023 0.4 0.2 -1.2 Personal history of radiation therapy 01/04/2021 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 Past Treatment and Therapy Plans No past plan information found. Radiation Treatments * Course C1 L BREAST 2020 04/27/2020 - 05/01/2020 Treatment Period Energy Fraction Dose Fractions Total Dose Plans Planned L BREAST 04/27/2020 - 05/01/2020 520 5 / 2,600 Reference Points Delivered serrano dpv 04/27/2020 - 05/01/2020 2,600 Lifetime Dose Tracking * Chemical Lifetime Dose Automatic Entry Manual Entr y Fluoro Time 0.3 minutes 0.3 minutes 0 minutes Air kerma at the reference point (Ka,r) 1.6 mGy 1 .6 mGy 0 mGy Resolved Problems Problem Noted Date Diagnosed Date Resolved Date Primary osteoarthritis of right knee 11/06/2019 11/09/2021 Overview (11/06/2019): Added automatically from request for surgery [id number] Aftercare following left kne e joint replacement surgery 06/01/2017 11/09/2021
--- OUTSIDE RECORDS SUMMARY | 2025-02-18 01:45 | XMS_ITS | Clinical Summary ---
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 Active clobetasoL (TEMOVATE) 0.05 % ointment APPLY TO AFFECTED AREA ON BACK TWICE DAILY X 2 WEEKS MAXIMUM. AVOID FACE, ARMPITS, GROIN 02/02/2024 Active eszopiclone (LUNESTA) 1 mg tablet Take 1 mg by mouth 1 (one) time each day. 02/23/2024 Active letrozole (FEMARA) 2.5 mg chemo tablet Take 2.5 mg by mouth 1 (one) time each day 03/12/2020 03/26/20 25 Active lisinopriL-hydr ochlorothiazide (PRINZIDE,ZESTO RETIC) 10-12.5 mg tablet Take 1 tablet by mouth 1 (one) time each day. Active allopurinoL (ZYLOPRIM) 100 mg tablet Take 200 mg by mouth 1 (one) time each day. Active Active Problems Problem Noted Date Diagnosed Date Osteopenia of neck of left femur 04/03/2023 Overview (06/24/2024): Date Lumbar Spine T-score Left hip T-score Femoral neck T-score 04-22-2020 0.4 -0.1 -1.0 01/18/2023 0.4 0.2 -1.2 Personal history of radiation therapy 01/04/2021 custodial (current) use of aromatase inhibitors 05/19/2020 Breast cancer greater than 0 .1 cm and less than or equal to 0.5 cm in greatest dimension 02/10/2020 History of bilateral knee replacement 11/14/2019 Vitamin D deficiency 06/19/2019 Gout 06/19/2018 High blood pressure 06/19/2018 High cholesterol 06/19/2018 Social History Tobacco Use Types Packs/Day Years Used Date Smoking Tobacco: Never Assessed Comments Unknown Sex and Gender Information Value Date Recorded Sex Assigned at Not on file Legal Sex Female 1:24 AM PST Gender Identity Not on file Sexual Orientation Not on file Last Filed Vital Signs Vital Sign Reading Time Taken Comments Blood Pressure 116/72 06/24/2024 1:24 PM PST Pulse 96 06/24/2024 1:24 PM PST Temperature 36.2 C (97.1 F) 05/13/2020 1:46 PM PST Respiratory Rate - - Oxygen Saturation - - Inhaled Oxygen Concentration - - Weight - - Height - - Body Mass Index - - Plan of Treatment Health Maintenance Due Date Last Done Comments Scaling and Root Planing 1948 Periodontal Maintenance 09/09/2020 06/10/2020 OralFitnessCheck Screening 12/22/2024 06/24/2024 Dental Oral Exam 12/23/2024 06/24/2024, 05/13/2020 Dental X-Ray: Bitewings 12/23/2024 06/24/2024 Dental CBCT 06/24/2027 06/24/2024 Dental X-Ray: Full Mouth 06/26/2027 06/25/2024, 11/2024 Dental X-Ray: Panoramic 06/27/2027 06/26/2024, 06/26 Procedures Procedure Name Priority Date/Time Associated Diagnosis Comments [place] CT CAPTURE AND INTERPRETATION WITH FIELD OF VIEW OF BOTH JAWS; WITH OR WITHOUT CRANIUM Routine 06/24/2024 1:15 PM PST ORALFITNESSCHECK INITIAL SCREEN Routine 06/24/2024 1:15 PM PST COMPREHENSIVE ORAL EVALUATION - NEW OR ESTABLISHED PATIENT Routine 06/24/2024 1:15 PM PST Encounter for dental examination and cleaning without abnormal findings PERIO MAINTENANCE Routine 06/10/2020 10: 00 AM PST PANORAMIC RADIOGRAPHIC IMAGE Routine 06/26/2018 12:00 AM PST from Last 3 Months or Most Recently Relevant to Health Maintenance Insurance [facility] PPO
[2025-02-18 11:05] VITALS: BP 134/65; PULSE 95; RESP 18; TEMP 36.5; O2SAT 100; BMI 25.3
--- NOTE | 2025-02-18 11:21 | P.PNAN_ITS ---
Anes - Initial Pre Proc Eval Procedure: Operation Date: 02/18/25 12:30 Proposed Procedures p Screening Colonoscopy - Florencio Arreguin DO Date/Time: 02/18/25 11:21 Surgeon: Florencio Arreguin DO Pre Op Diagnosis: Neoplasm screening Patient Data Age: 74 Gender: F Height: 1.63 m Weight: 66.9 kg Last Vital Signs Temp 97.7 F 02/18/25 11:05 Pulse 95 02/18/25 11:05 Resp 18 02/18/25 11:05 BP 134/65 02/18/25 11:05 Pulse Ox 100 02/18/25 11:05 O2 Del Method Room Air 02/18/25 11:05 Allergies Allergy/AdvReac Type Severity Reaction Status Date / Time codeine AdvReac Unknown Nausea Verified 02/18/25 11:10 Home Medications ?Medication ?Instructions ?Recorded ?Confirmed ?Type allopurinol 100 mg tablet 100 mg PO DAILY 02/05/2508/13 History atorvastatin 20 mg tablet 20 mg PO DAILY 02/05/25/08/13 History letrozole 2.5 mg tablet 2.5 mg PO DAILY 02/05/2508/13 History lisinopril 10 1 tablet PO DAILY 02/05/25 0 02/18/25 History mg-hydrochlorothiazide 12.5 mg tablet Patient hx anesthesia problems: none Family hx anesthesia problems: none Results Review: All pre-operative results and documents have been reviewed as part of the pre- operative evaluation. [facility] Family History Family History (Updated 02/13/14 @ 07:13 by DOCTOR UNKNOWN) Sibling Family history of alcoholism Mother Family history of renal failure Father Family history of heart disease in male family member before age 55 Grandparent Family history of malignant neoplasm Social History Social History Smoking status: Never smoker Alcohol intake: never Substance use: never Living arrangements: with family Spiritual care concerns: No Anes - Eval Final PreProcedure Day of Procedure 02/18/25 11:21 Patient weight: normal Heart: regular rate and rhythm Lungs: clear to auscultation Airway: Mallampati scale class II Neurological: alert and oriented Last oral intake: >/= 8 hours ASA classification: III Emergent: no Anesthetic plan: proceed Anesthesia type and monitoring: general GIVS and standard monitoring Results Review: All pre-operative results and documents have been reviewed as part of the pre- operative evaluation. Informed Consent: The patient's anesthetic plan and its attendant risks and benefits were discussed with the patient/family/POA. Questions were solicited and answers provided to the satisfaction of the patient/family/POA.
[2025-02-18] MEDS: LACTATED RINGERS 1,000 ML 150 ML IV CONT (11:25)
--- NOTE | 2025-02-18 11:42 | P.HP_ITS ---
H&P: HPI History of Present Illness Date/Time: 02/18/25 11:42 Chief Complaint: history of colon polyps Narrative: this is a 74-year-old woman who presents for colonoscopy. Her last colonoscopy was 6 or 7 years ago and polyps were removed at that time. She denies any hematochezia or melena. She denies family history of colon cancer. Review of Systems Review of Systems: All systems reviewed & are unremarkable except as noted in HPI and below Constitutional: Constitutional: Denies chills, Denies fever(s), Denies headache(s) and Denies weight loss Eyes: Eyes: Denies change in vision ENT: Denies dizziness, Denies headache(s), Denies neck mass and Denies throat swelling Cardiovascular: Cardiovascular: Denies chest pain, Denies lightheadedness and Denies dyspnea Respiratory: Respiratory: Denies cough, Denies dyspnea and Denies wheezing Gastrointestinal: Gastrointestinal: Denies abdominal pain, Denies change in bowel habits, Denies nausea and Denies vomiting Genitourinary: Genitourinary: Denies hematuria and Denies dysuria Musculoskeletal: Musculoskeletal: Reports as per HPI Integumentary/Breasts: Skin/Breast: Reports as per HPI Neurologic: Denies dizziness and Denies headache(s) Allergic/Immunologic: Allergic/Immunologic: Denies throat swelling and Denies wheezing [facility] Family History Family History (Updated 02/13/14 @ 07:13 by DOCTOR UNKNOWN) Sibling Family history of alcoholism Mother Family history of renal failure Father Family history of heart disease in male family member before age 55 Grandparent Family history of malignant neoplasm Social History Social History Smoking status: Never smoker Alcohol intake: never Substance use: never Living arrangements: with family Spiritual care concerns: No Meds Home Medications and Allergies Home Medications ?Medication ?Instructions ?Recorded ?Confirmed ?Type allopurinol 100 mg tablet 100 mg PO DAILY 02/05/2508/13 History atorvastatin 20 mg tablet 20 mg PO DAILY 02/05/2508/13 History letrozole 2.5 mg tablet 2.5 mg PO DAILY 02/05/2508/13 History lisinopril 10 1 tablet PO DAILY 02/05/25 0 02/18/25 History mg-hydrochlorothiazide 12.5 mg tablet Allergies Allergy/AdvReac Type Severity Reaction Status Date / Time codeine AdvReac Unknown Nausea Verified 02/18/25 11:10 Vital Signs Vital Signs - 24 hr 02/18/25 11:05 Temperature 97.7 F Pulse Rate 95 Respiratory Rate 18 Blood Pressure 134/65 Pulse Oximetry 100 Oxygen Delivery Room Air Exam Const: General: no acute distress and alert Orientation/consciousness: patient oriented x3 HENMT: Head: normocephalic and atraumatic Ears: hearing grossly normal bilaterally Face/Nose/Sinus: Normal nares present Mouth: Yes Normal oral and palatal mucosa present Eyes: Periorbital: periorbital findings normal Sclera: sclerae normal EOM: EOMs intact bilaterally Neck: Neck: normal visual inspection, no lymphadenopathy and trachea midline Chest: Chest palpation & inspection: normal inspection of the chest Resp: Effort & Inspection: normal respiratory effort Auscultation: clear to auscultation bilaterally Cardio: Jugular venous distension: no JVD Rate: regular rate Rhythm: regular rhythm Heart sounds: S1 normal heart sound present and S2 normal heart sound present Peripheral pulses: Peripheral pulses 2+ throughout GI: Inspection: normal to inspection GI Palp: Yes Soft to palpation, No Tenderness to palpation present (GI), No Guarding due to palpation present (GI) and No Rebound tenderness present Percussion: Yes normal to percussion Auscultation: normal bowel sounds : General: Yes no CVA tenderness Back/Spine/Pelvis: Back: no CVA tenderness Neuro: General: patient oriented x3, no focal motor deficits and CN's II-XI intact bilaterally Cognition (Neuro): normal cognition Speech: normal speech Motor exam (neuro): 5/5 motor strength present throughout Extrem: General: capillary refill normal and no clubbing, cyanosis or edema Assessment and Plan Assessment and plan (1) Hx of colonic polyps: Code(s): Z86.0100 - Personal history of colon polyps, unspecified Status: Acute Assessment and Plan: I have recommended colonoscopy. I have discussed the procedure, risks, benefits, and alternatives. Questions were answered. Patient is agreeable to proceed.
[2025-02-18 12:09] VITALS: BP 117/52; PULSE 76; RESP 13; O2SAT 100
[2025-02-18 12:19] VITALS: BP 102/73; PULSE 74; RESP 20; O2SAT 100
[2025-02-18 12:29] VITALS: BP 117/61; PULSE 72; RESP 18; O2SAT 100
== END 2025-02-18 12:49 | disposition home or self-care (01) ==
PROVIDERS: PCP Internal Medicine; Visit Provider Surgery
PROC: 0DJD8ZZ Inspection of Lower Intestinal Tract, Via Natural or Artificial Opening Endoscopic (ICD-10-PCS; CPT 45378; principal; 2025-02-18 12:30)
DX: Z12.11 Encounter for screening for malignant neoplasm of colon (principal); K64.8 Other hemorrhoids; K57.30 Diverticulosis of large intestine without perforation or abscess without bleeding; Z86.0100 Personal history of colon polyps, unspecified; Z80.9 Family history of malignant neoplasm, unspecified; Z82.49 Family history of ischemic heart disease and other diseases of the circulatory system
CPT/HCPCS: G0105; J2003; J2704; J7120